=== PATIENT | female | born 1990 | race Caucasian/White ===

== ENCOUNTER 2023-03-21 14:18 | Emergency (ER) | payer MEDICAID ==
[~2023-03-21] VITALS: Ht 160 cm; Wt 72.6 kg
[2023-03-21 14:20] VITALS: BP_SYST 112; PULSE 58; RESP 18; TEMP 98.2; O2SAT 98
[2023-03-21] MEDS ORDERED: NACL 0.9% 1,000 ML IV ONE (14:45)
[2023-03-21 15:09] LABS: BASOPHILS % (AUTO) 0.3 % (0.0-2.0); EOSINOPHILS # (AUTO) 0.1 K/uL (0.0-0.4); EOSINOPHILS % (AUTO) 1.2 % (0.0-4.0); HEMATOCRIT 38.9 % (36-48); HEMOGLOBIN 12.7 g/dL (12.0-16.0); LYMPHOCYTES # (AUTO) 0.8 K/uL (1.0-5.5); LYMPHOCYTES % (AUTO) 9.8 % (20.5-51.5); MEAN CORPUSCULAR HEMOGLOBIN 28 pg (27-31); MEAN CORPUSCULAR HGB CONC 33 % (32-36); MEAN CORPUSCULAR VOLUME 87 fL (79.0-98.0); MONOCYTES # (AUTO) 0.5 K/uL (0.0-1.0); MONOCYTES % (AUTO) 5.7 % (1.7-9.3); NEUTROPHILS # (AUTO) 7.1 K/uL (1.8-7.7); PLATELET COUNT (AUTO) 251 K/uL (130-430); RED BLOOD CELL COUNT(AUTO) 4.48 MIL/uL (4.2-6.2); RED CELL DISTRIBUTION WIDTH 13.6 % (9.0-15.0); WHITE BLOOD COUNT (AUTO) 8.6 K/uL (4.8-10.8)
[2023-03-21 15:24] LABS: CREATININE 0.8 mg/dL (0.55-1.30); POTASSIUM 3.6 mmol/L (3.5-5.1)
[2023-03-21 15:29] LABS: ALBUMIN 3.5 g/dL (3.4-4.8); TOTAL BILIRUBIN 0.5 mg/dL (0.0-1.0); TOTAL PROTEIN, SERUM 6.1 g/dL (6.4-8.3)
[2023-03-21] MEDS ORDERED: LORazepam 1 MG TABLET PO ONE (15:30)
[2023-03-21] MEDS ORDERED: KETOROLAC TROMETHAMINE 30 MG VIAL IVP ONE (15:30)
[2023-03-21] MEDS ORDERED: ALPR0.25 PO (16:30)
[2023-03-21] MEDS ORDERED: IBUP-1971 PO (16:30)
[2023-03-21 16:52] VITALS: BP_SYST 112; PULSE 75; RESP 18; TEMP 98.2; O2SAT 100
== END 2023-03-21 16:49 | disposition home or self-care (01) ==
LOC: SED 14:18
DX: R55 Syncope and collapse (principal); E86.0 Dehydration; N92.0 Excessive and frequent menstruation with regular cycle; Z95.0 Presence of cardiac pacemaker; Z79.899 Other long term (current) drug therapy
CPT/HCPCS: 99284; 96374; 96361; 80053; 82962; 85025; 36415; 93005; J1885; J7030